=== PATIENT | male | born 1985 | race African-American/Black ===

== ENCOUNTER 2016-05-16 15:24 | Emergency (ER) | payer SELFPAY ==
[2016-05-16 15:51] VITALS: BMI 22.1
[2016-05-16 15:52] VITALS: TEMP 97.8
[2016-05-16] MEDS ORDERED: DIPHTHERIA AND TETANUS (ADULT) 0.5 ML SYR IM ONE (16:28)
--- NOTE | 2016-05-16 16:28 | EDPRACDOC ---
- General Information Information Source: Patient Home Medications: Home Medications Alprazolam [Xanax] 1 mg PO Q6H PRN 05/16/16 Allergies/Adverse Reactions: Allergies Allergy/AdvReac Type Severity Reaction Status Date / Time No Known Allergies Allergy Verified 05/16/16 15:48 - History of Present Illness Onset: last pm HPI: C/o laceration to top of head last night when he tripped and fell. Was under the influence od ETOH. at the time. Wound is dry and edges approximated. Pt wanted to know if it was infected. - Tetanus Status Last Tetanus: No - Pain Pain Severity: None Bleeding: Reports: Controlled Associated Signs & Symptoms: Reports: None ED Past Medical History - History Reviewed Yes Nurses notes reviewed and agree except as marked - Patient Medical History Psychological History: Reports: Anxiety. Denies: Depression - Social Medical History Smoking Status: Heavy tobacco smoker (5 or more cigarettes/day or daily pipe/ cigar) EDM Review of Systems - Review of Systems ROS Negative Except as Marked: Yes All systems reviewed and were negative except as marked Integumentary: Wound - Physical Exam Constitutional: No apparent distress, Alert Oriented to: Time, Person, Place Last recorded Vital Signs: Last Vital Signs Temp 97.8 F 05/16/16 15:51 Pulse 95 05/16/16 15:51 Resp 20 05/16/16 15:51 BP 149/85 05/16/16 15:51 Pulse Ox 99 05/16/16 15:51 Oxygen Pulse Oxygen Saturation 99 O2 Device Oxygen Flow Rate Fraction of Inspired Oxygen ( FIO2) - HEENT Head: Laceration (left lateral head) Eye Exam: negative: Conjunctival Injection, Scleral Icterus Oropharynx: negative: Drooling ENT EAC: Normal TMJ: Normal Nose: No Symptoms Reported Neck: Normal - Respiratory/Cardiovascular Respiratory: Normal - CTA Cardiovascular: Normal - GI Tenderness: Non tender - Musculoskeletal Back: Normal Extremities: Normal - Integumentary Skin: Normal - Neurologic Motor Function: Normal Cranial Nerve: Normal Cerebellar: Normal Mood Description: Normal Thought: Coherent Perception: Normal Decision Time to Discharge: 16:31 - Departure Disposition: Home Condition: Stable Final Diagnosis: Laceration Instructions: Laceration (ED) Education/Counseling Given To: Patient Education/Counseling Given Regarding: Diagnosis, Treatment, Prognosis, Follow Up Referrals: None,No Provider [Primary Care Provider] - One Week Prescriptions: No Action Alprazolam [Xanax] 1 mg PO Q6H PRN PRN Reason: Anxiety Additional Instructions: Follow up with primary care. Return to ED for any new or worsening symptoms.
[2016-05-16 17:00] VITALS: BP 156/90; PULSE 83
== END 2016-05-16 16:55 | disposition home or self-care (01) ==
LOC: ED 15:24
DX: S01.91XA Laceration without foreign body of unspecified part of head, initial encounter (principal); W01.0XXA Fall on same level from slipping, tripping and stumbling without subsequent striking against object, initial encounter; Y93.9 Activity, unspecified; Z23 Encounter for immunization
CPT/HCPCS: 90471; 90714; 99283